=== PATIENT | male | born 1960 | race Caucasian/White ===

== ENCOUNTER 2019-01-30 13:25 | Emergency (ER) | payer MEDICAID ==
[~2019-01-30] VITALS: Ht 175.3 cm; Wt 98.4 kg
[2019-01-30 13:36] VITALS: Ht 175.3 cm; Wt 98.4 kg
[2019-01-30 17:12] VITALS: BP 134/79
== END 2019-01-30 17:12 | disposition home or self-care (01) ==
LOC: ED 13:25
DX: R10.32 Left lower quadrant pain (principal); K62.89 Other specified diseases of anus and rectum

== ENCOUNTER 2019-07-01 07:37 | Emergency (ER) | payer OTHER ==
[~2019-07-01] VITALS: Ht 175.3 cm; Wt 100.2 kg
[2019-07-01 07:41] VITALS: Ht 175.3 cm; Wt 100.2 kg
[2019-07-01 10:19] VITALS: BP 113/75
== END 2019-07-01 10:19 | disposition home or self-care (01) ==
LOC: ED 07:37
DX: J45.901 Unspecified asthma with (acute) exacerbation (principal); F17.210 Nicotine dependence, cigarettes, uncomplicated; Z76.0 Encounter for issue of repeat prescription
CPT/HCPCS: 99406; J7512; J7613; J7644; Q0092

== ENCOUNTER 2020-06-16 08:43 | Emergency (ER) | payer OTHER ==
[~2020-06-16] VITALS: Ht 175.3 cm; Wt 107.5 kg
[2020-06-16 08:54] VITALS: Ht 175.3 cm; Wt 107.5 kg
[2020-06-16 09:40] VITALS: BP 162/94
== END 2020-06-16 09:40 | disposition home or self-care (01) ==
LOC: ED 08:43
DX: K43.9 Ventral hernia without obstruction or gangrene (principal); J45.909 Unspecified asthma, uncomplicated; Z98.890 Other specified postprocedural states

== ENCOUNTER 2020-12-26 12:47 | Inpatient (IN) | payer OTHER, SELFPAY ==
[~2020-12-26] VITALS: Ht 172.7 cm; Wt 115.4 kg
[2020-12-26 12:55] VITALS: Ht 172.7 cm; Wt 115.4 kg
[2020-12-26 13:22] LABS: PLATELET COUNT 267 x10^3mcL (152-348); RED CELL DISTRIBUTION WIDTH 13.1 % (12.1-16.2)
[2020-12-26 14:01] LABS: BAND NEUTROPHIL 0 % (0-10); BASOPHIL 0 % (0-2); SEGMENTED NEUTROPHILS 76 % (37-75); rbc morphology (normal/abnorm) NORMAL (NORMAL)
[2020-12-26 14:08] LABS: CALCIUM 8.9 mg/dL (8.5-10.1); CARBON DIOXIDE 24.4 mmol/L (21-32); CHLORIDE SERUM 96 mmol/L (98-107); GFR1 > 60 mL/min; GLUCOSE SERUM 112 mg/dL (74-106); POTASSIUM SERUM 3.4 mmol/L (3.5-5.1); SODIUM SERUM 131 mmol/L (136-145)
[2020-12-26 14:13] LABS: ALBUMIN 3.8 g/dL (3.4-5.0); ALKALINE PHOSPHATASE 78 U/L (46-116); ALT/SGPT 32 U/L (16-63); AST/SGOT 24 U/L (15-37); BILIRUBIN TOTAL 0.3 mg/dL (0.20-1.00); C REACTIVE PROTEIN 0.3 mg/dL (<=0.9); LACTIC DEHYDROGENASE (LDH) 204 U/L (100-190); TOTAL PROTEIN, SERUM 7.1 g/dL (6.4-8.2)
[2020-12-26 14:49] LABS: microscopic required? NO
[2020-12-26 15:21] LABS: UA SPECIFIC GRAVITY 1.025 (1.005-1.035); urine erythrocyte NEGATIVE (NEGATIVE)
[2020-12-26 16:04] LABS: CHOLESTEROL/HDL RATIO 3.2
[2020-12-26 16:05] LABS: T3 TOTAL 0.94 ng/mL
[2020-12-26 16:39] LABS: FREE T4 0.66 ng/dL (0.76-1.46); FREE THYROXINE INDEX 1.6 ug/dL (1.4-4.5); T4(THYROXINE) 4.9 ug/dL (4.7-13.3)
[2020-12-26] MEDS ORDERED: KEPPRA250 M1 PO (17:28)
[2020-12-26 18:37] VITALS: BP 127/73
[2020-12-26 19:30] LABS: AMPHETAMINE QUAL UR NONE DETECTED (See below)
[2020-12-26 20:10] VITALS: BP 115/70
[2020-12-26] MEDS ORDERED: TAMSULOSIN HCL0.4 MG PO (21:40)
[2020-12-26] MEDS ORDERED: OXCARBAZEPINE600 M1 PO (21:41)
[2020-12-27 05:33] VITALS: BP 151/91
[2020-12-27 05:56] LABS: BASOPHIL % 0.1 % (0.2-1.5); PLATELET COUNT 275 x10^3mcL (152-348); RED CELL DISTRIBUTION WIDTH 13.4 % (12.1-16.2)
[2020-12-27 06:08] LABS: CALCIUM 9.5 mg/dL (8.5-10.1); CARBON DIOXIDE 25.6 mmol/L (21-32); CHLORIDE SERUM 101 mmol/L (98-107); CREATININE SERUM 0.9 mg/dL (0.7-1.3); GFR1 > 60 mL/min; GLUCOSE SERUM 131 mg/dL (74-106); MAGNESIUM 2.2 mg/dL (1.8-2.4); PHOSPHOROUS 3.7 mg/dL (2.5-4.9); POTASSIUM SERUM 4.3 mmol/L (3.5-5.1); SODIUM SERUM 135 mmol/L (136-145)
[2020-12-27 08:05] VITALS: BP 146/78
[2020-12-27 12:00] VITALS: BP 143/89
[2020-12-27 16:05] VITALS: BP 141/62
[2020-12-27 20:00] VITALS: BP 151/79
[2020-12-28 06:13] VITALS: BP 140/94
[2020-12-28 07:03] LABS: PLATELET COUNT 266 x10^3mcL (152-348); RED CELL DISTRIBUTION WIDTH 13.4 % (12.1-16.2)
[2020-12-28 07:45] LABS: CALCIUM 9.5 mg/dL (8.5-10.1); CARBON DIOXIDE 23.7 mmol/L (21-32); CHLORIDE SERUM 100 mmol/L (98-107); CREATININE SERUM 0.7 mg/dL (0.7-1.3); GFR1 > 60 mL/min; GLUCOSE SERUM 123 mg/dL (74-106); MAGNESIUM 2.3 mg/dL (1.8-2.4); PHOSPHOROUS 3.8 mg/dL (2.5-4.9); POTASSIUM SERUM 4.2 mmol/L (3.5-5.1); SODIUM SERUM 134 mmol/L (136-145)
[2020-12-28 07:58] LABS: BASOPHIL % 0 % (0.2-1.5)
[2020-12-28 08:07] VITALS: BP 141/85
[2020-12-28] MEDS ORDERED: MUCINEX600 MG PO (08:28)
[2020-12-28] MEDS ORDERED: PEP20 PO (08:29)
[2020-12-28] MEDS ORDERED: PREDNISONE5 MG PO (08:32)
[2020-12-28] MEDS ORDERED: PRE20 PO (08:32)
[2020-12-28] MEDS ORDERED: PREDNISONE10 MG PO (08:32)
[2020-12-28] MEDS ORDERED: PREDNISONE2.5 MG PO (08:33)
[2020-12-28] MEDS ORDERED: ZITHROMAX TRI-500 MG PO (08:35)
[2020-12-28] MEDS ORDERED: COMINH INH (08:44)
== END 2020-12-28 12:35 | disposition home or self-care (01) | DRG 141 ==
LOC: ED 12:47 → DU 15:24
PROVIDERS: Emergency Medicine; ADMIT Internal Medicine; ATTEND Internal Medicine
DX: J45.901 Unspecified asthma with (acute) exacerbation (principal); J96.01 Acute respiratory failure with hypoxia; R65.11 Systemic inflammatory response syndrome (SIRS) of non-infectious origin with acute organ dysfunction; Z20.822 Contact with and (suspected) exposure to COVID-19; E87.2 Acidosis; R56.9 Unspecified convulsions; Z96.643 Presence of artificial hip joint, bilateral; E87.1 Hypo-osmolality and hyponatremia; E87.6 Hypokalemia; E66.01 Morbid (severe) obesity due to excess calories; J44.9 Chronic obstructive pulmonary disease, unspecified; Z87.891 Personal history of nicotine dependence; Z79.899 Other long term (current) drug therapy; Z79.891 Long term (current) use of opiate analgesic; Z79.01 Long term (current) use of anticoagulants
CPT/HCPCS: 36600; 83880; 84439; 85378; 87804; G0378; J0456; J0696; J1644; J2920; J2930; J3535; J7030; J7613; U0003